=== PATIENT | male | born 1960 | race Caucasian/White ===

== ENCOUNTER 2018-11-12 08:34 | Emergency (ER) | payer OTHER ==
[2018-11-12 12:58] LABS: ADD UMIC YES; UR ASCORBIC ACID NEGATIVE (NEGATIVE); UR BACTERIA FEW /HPF (NONE SEEN); UR BILIRUBIN (Dip) NEGATIVE (NEGATIVE); UR BLOOD (Dip) 1+ mg/dL (NEGATIVE); UR CLARITY SLIGHTLY CLOUDY (CLEAR); UR COLOR YELLOW (YELLOW); UR GLUCOSE (Dip) 3+ mg/dL (NEGATIVE); UR KETONES (Dip) NEGATIVE (NEGATIVE); UR LEUKOCYTE ESTERASE (Dip) NEGATIVE Leu/ul (NEGATIVE); UR MUCUS FEW /HPF (NONE SEEN); UR NITRITE (Dip) NEGATIVE (NEGATIVE); UR RBC 13 /HPF (0-5); UR SPECIFIC GRAVITY (Dip) 1.023 (1.003-1.030); UR TOTAL PROTEIN (Dip) 3+ mg/dl (NEGATIVE); UR UROBILINOGEN (Dip) NEGATIVE (NEGATIVE); UR WBC 8 /HPF (0-5)
== END 2018-11-12 13:45 | disposition home or self-care (01) ==
LOC: FTE 08:34
DX: R10.30 Lower abdominal pain, unspecified (principal); I10 Essential (primary) hypertension; F17.210 Nicotine dependence, cigarettes, uncomplicated; E09.10 Drug or chemical induced diabetes mellitus with ketoacidosis without coma; Z79.4 Long term (current) use of insulin
CPT/HCPCS: 76870; 81001; 99284-25

== ENCOUNTER 2018-11-23 05:41 | Day surgery (SDC) | payer OTHER ==
[2018-11-23 06:32] LABS: ADD MAN DIFF? NO
[2018-11-23 06:41] LABS: WHITE BLOOD COUNT 14.7 10^3/ul (4.8-10.8)
[2018-11-23 06:41] LABS: BASOPHIL # 0.2 10^3/ul (0.0-0.1); EOSINOPHILS # 0.4 10^3/ul (0.0-0.5); EOSINOPHILS % 2.5 % (0.0-7.0); HEMATOCRIT 43.7 % (42.0-52.0); HEMOGLOBIN 13.8 g/dl (14.0-18.0); LYMPHOCYTES % 26.8 % (15.0-51.0); MEAN CORPUSCULAR HEMOGLOBIN 26.1 pg (29.0-33.0); MEAN CORPUSCULAR HGB CONC 31.6 g/dl (32.0-37.0); MEAN CORPUSCULAR VOLUME 82.8 fl (82.0-101.0); MEAN PLATELET VOLUME 9.5 fl (7.4-10.4); MONOCYTE # 1.2 10^3/ul (0.3-0.9); MONOCYTES % 8.2 % (0.0-11.0); NEUTROPHILS % 60.9 % (39.0-77.0); PLATELET COUNT 406 10^3/UL (140-415); RED BLOOD COUNT 5.28 10^6/ul (4.70-6.10); RED CELL DISTRIBUTION WIDTH 14.6 % (11.5-14.5)
[2018-11-23] MEDS: LACTATED RINGER'S 1,000 ML (ENTER RATE) IV* (06:42)
[2018-11-23 06:53] LABS: ADD UMIC YES; UR ASCORBIC ACID NEGATIVE (NEGATIVE); UR BILIRUBIN (Dip) NEGATIVE (NEGATIVE); UR BLOOD (Dip) 1+ mg/dL (NEGATIVE); UR CLARITY CLEAR (CLEAR); UR COLOR YELLOW (YELLOW); UR GLUCOSE (Dip) 1+ mg/dL (NEGATIVE); UR KETONES (Dip) NEGATIVE (NEGATIVE); UR LEUKOCYTE ESTERASE (Dip) NEGATIVE Leu/ul (NEGATIVE); UR NITRITE (Dip) NEGATIVE (NEGATIVE); UR RBC 5 /HPF (0-5); UR SPECIFIC GRAVITY (Dip) 1.015 (1.003-1.030); UR TOTAL PROTEIN (Dip) 3+ mg/dl (NEGATIVE); UR UROBILINOGEN (Dip) NEGATIVE (NEGATIVE); UR WBC 3 /HPF (0-5)
[2018-11-23 07:00] LABS: INR 0.89; PARTIAL THROMBOPLASTIN TIME 27.8 Sec (23.0-35.0); PROTIME 12.2 Sec (11.9-14.9)
[2018-11-23 07:02] LABS: ANION GAP 3 (5-13); BLOOD UREA NITROGEN 19 mg/dl (7-20); CALCIUM 9.5 mg/dl (8.4-10.2); CARBON DIOXIDE 26 mmol/L (21-31); CHLORIDE 111 mmol/L (97-110); Estimated GFR 58 mL/min (>60); GLUCOSE 118 mg/dl (70-220); POTASSIUM 4.7 mmol/L (3.5-5.1); SODIUM 140 mmol/L (135-144)
[2018-11-23 07:19] LABS: CREATININE 1.28 mg/dl (0.61-1.24)
[2018-11-23] MEDS: LIDOCAINE 1% (MPF) 10 ML INJ ×3 (07:23→08:39)
[2018-11-23] MEDS: BUPIVACAINE 0.5%/EPI (SDV) 30 ML INJ (07:23)
[2018-11-23] MEDS: POLYMYXIN/BACITRACIN 1L IRRIG (07:23)
[2018-11-23] MEDS: CEFAZOLIN 3 GM in SOD CHLORIDE 0.9% 100 ML IVPB (07:45)
[2018-11-23] MEDS ORDERED: FENTAnyl 50 MCG/ML VIAL (07:47)
[2018-11-23] MEDS ORDERED: MIDAZOLAM 1 MG/ML 2 ML INJ (07:47)
[2018-11-23] MEDS ORDERED: PROPOFOL 60 ML (09:12)
[2018-11-23] MEDS ORDERED: CEFAZOLIN 1 GM INJ (09:12)
[2018-11-23] MEDS ORDERED: LIDOCAINE 2% (SDV) 5 ML INJ (09:12)
[2018-11-23] MEDS: LACTATED RINGER'S 1,000 ML IV (09:16)
[2018-11-23] MEDS ORDERED: HYDROCODONE/APAP (5/325) TAB PO ×2 (09:30)
[2018-11-23] MEDS ORDERED: EPHEDrine SULFATE 50 MG/5 ML SYG IV (09:30)
[2018-11-23] MEDS ORDERED: METOCLOPRAMIDE 10 MG INJ IV (09:30)
[2018-11-23] MEDS ORDERED: KETOROLAC 30 MG INJ IV (09:30)
[2018-11-23] MEDS ORDERED: ALBUTEROL 0.083% (NEB) 2.5 MG/3 ML AMP HHN (09:30)
[2018-11-23] MEDS ORDERED: ONDANSETRON 4 MG INJ IV (09:30)
[2018-11-23] MEDS ORDERED: FENTAnyl 50 MCG/ML VIAL IV ×2 (09:30)
[2018-11-23] MEDS ORDERED: morphine 2 MG INJ IV (09:30)
[2018-11-23] MEDS ORDERED: HYDROmorphONE 1 MG/5 ML IV SYRINGE IV ×3 (09:30)
[2018-11-23] MEDS ORDERED: MEPERIDINE 25 MG INJ IV (09:30)
[2018-11-23] MEDS ORDERED: OXYCODONE/ACETAMINOPHEN (5/325) TAB PO ×2 (09:30)
[2018-11-23] MEDS ORDERED: DIPHENHYDRAMINE 50 MG INJ IV (09:30)
[2018-11-23] MEDS: hydrALAzine 20 MG INJ IV (09:33)
[2018-11-23] MEDS: ONDANSETRON 4 MG INJ IV (09:33)
[2018-11-23] MEDS: FENTAnyl 50 MCG/ML VIAL IV (09:34)
[2018-11-23] MEDS: LABETALOL HCL 20MG INJ IV (10:03)
== END 2018-11-23 10:49 | disposition home or self-care (01) ==
LOC: SDS 05:41
DX: K40.90 Unilateral inguinal hernia, without obstruction or gangrene, not specified as recurrent (principal); E11.9 Type 2 diabetes mellitus without complications; I25.10 Atherosclerotic heart disease of native coronary artery without angina pectoris; I10 Essential (primary) hypertension; Z87.891 Personal history of nicotine dependence; J44.9 Chronic obstructive pulmonary disease, unspecified
CPT/HCPCS: 49507; 80048; 81001; 82962; 85025; 85610; 85730; 88302